=== PATIENT | female | born 1970 | race Caucasian/White ===

== ENCOUNTER → 2018-07-31 12:46 | Outpatient (CLI) | payer OTHER, SELFPAY ==
--- NOTE | 2018-07-31 | DI.MG.S_ITS ---
BILATERAL DIGITAL SCREENING MAMMOGRAM 3D/2D WITH CAD: 07/31/2018 CLINICAL: Routine screening. Comparison is made to exams dated: 04/28/2016 mammogram and 12/24/2013 mammogram - [facility]. The tissue of both breasts is heterogeneously dense. This may lower the sensitivity of mammography. Current study was also evaluated with a Computer Aided Detection (CAD) system. No significant masses, calcifications, or other findings are seen in either breast. There has been no significant interval change. IMPRESSION: NEGATIVE There is no mammographic evidence of malignancy. A 1 year screening mammogram is recommended. This exam was interpreted at Station ID: [id number]. NOTE: For mammograms, a report in lay terms will be sent to the patient. Approximately 15% of breast malignancies will not be visualized mammographically. In the management of a palpable breast mass, a negative mammogram must not discourage biopsy of a clinically suspicious lesion. Electronically Signed By: Rajinder kan/heriberto:08/03/2018 06:55:58 letter sent: Normal Exam ACR BI-RADS Category 1: Negative 3341F
== END ==
PROVIDERS: Family Provider Family Medicine; PCP Family Medicine; Visit Provider Family Medicine
DX: Z12.31 Encounter for screening mammogram for malignant neoplasm of breast (principal)
CPT/HCPCS: 77063; 77067

== ENCOUNTER → 2019-11-20 15:10 | Outpatient (CLI) | payer BC, SELFPAY ==
--- NOTE | 2019-11-20 | DI.MG.S_ITS ---
BILATERAL DIGITAL SCREENING MAMMOGRAM 3D/2D WITH CAD: 11/20/2019 CLINICAL: Routine screening. Comparison is made to exams dated: 07/31/2018 mammogram, 04/28/2016 mammogram, and 12/24/2013 mammogram - [facility]. The tissue of both breasts is heterogeneously dense. This may lower the sensitivity of mammography. Current study was also evaluated with a Computer Aided Detection (CAD) system. There are benign lymph nodes in the right breast. No significant masses, calcifications, or other findings are seen in either breast. There has been no significant interval change. IMPRESSION: There is no mammographic evidence of malignancy. A 1 year screening mammogram is recommended. This exam was interpreted at Station ID: [id number]. NOTE: For mammograms, a report in lay terms will be sent to the patient. Approximately 15% of breast malignancies will not be visualized mammographically. In the management of a palpable breast mass, a negative mammogram must not discourage biopsy of a clinically suspicious lesion. Electronically Signed By: Dennis lin/heriberto:11/20/2019 19:00:58 letter sent: Normal Exam ACR BI-RADS Category 2: Benign Finding(s) 3342F
== END ==
PROVIDERS: PCP Family Medicine; Visit Provider Family Medicine
DX: Z12.31 Encounter for screening mammogram for malignant neoplasm of breast (principal)
CPT/HCPCS: 77063; 77067

== ENCOUNTER → 2020-11-09 11:08 | Outpatient (CLI) | payer BC, SELFPAY ==
[2020-11-09 12:26] LABS: COVID19 -Nasal RAPID Negative (Negative)
== END ==
PROVIDERS: PCP Family Medicine; Visit Provider Physician Assistant
DX: Z20.828 Contact with and (suspected) exposure to other viral communicable diseases (principal); J02.9 Acute pharyngitis, unspecified
CPT/HCPCS: 87070; 87635

== ENCOUNTER 2021-04-17 09:26 | Emergency (ER) | payer BC, SELFPAY ==
[2021-04-17 09:37] VITALS: BP 147/94; PULSE 72; RESP 16; TEMP 36.8; O2SAT 97; BMI 26.6
--- NOTE | 2021-04-17 09:57 | ED.GENADULT ---
HPI - General Adult General Chief complaint: Extremity Injury, Upper Stated complaint: swelling under left arm Time Seen by Provider: 04/17/21 09:37 Source: patient Mode of arrival: Ambulatory Limitations: no limitations History of Present Illness HPI narrative: Patient is a 50-year-old female who while shaving this morning noticed some swelling under her left arm. She states that was also a slight bit tender. There is no redness over the area. She did recently receive vaccine in her left arm. She is not having any fevers. No breast tenderness. No nipple discharge. Related Data Home Medications Medication Instructions Recorded Confirmed [ control pill] #0 09/13/16 11/09/20 Previous Rx's Medication Instructions Recorded oxycodone-acetaminophen [Percocet] 1 - 2 tab PO Q6HP PRN #20 tab 02/17/17 Allergies Allergy/AdvReac Type Severity Reaction Status Date / Time No Known Drug Allergies Allergy Unverified 11/09/20 11:17 Review of Systems Constitutional Constitutional: Denies fever(s) Cardiovascular Cardiovascular: Denies chest pain and Denies dyspnea Respiratory Respiratory: Denies dyspnea Musculoskeletal Comments: No left arm pain Integumentary/Breasts Comments: Swelling under left arm without any redness Neurologic Neurologic: Reports system reviewed and no additional complaints, except as documented Hematologic/Lymphatic Hematologic/Lymphatic: Reports system reviewed and no additional complaints, except as documented Allergic/Immunologic Allergic/Immunologic: Reports system reviewed and no additional complaints, except as documented Patient History Medical History No active medical problems Social History Smoking Status: Never smoker Smoking Status: Never smoker Exam Initial Vital Signs Initial Vital Signs: Vital Signs Temperature 98.3 F 04/17/21 09:37 Pulse Rate 72 04/17/21 09:37 Respiratory Rate 16 04/17/21 09:37 Blood Pressure 147/94 H 04/17/21 09:37 Pulse Oximetry 97 04/17/21 09:37 Const General: cooperative and comfortable Limitations: mental status not altered HENMT Head: normal to inspection and normocephalic Chest Other: Left breast is unremarkable. There are no masses. No nipple discharge. Patient does have a 3 cm x 1 cm area of swelling that is very well-defined in the left axilla that is slightly tender on the inferior aspect of it. There is no skin changes over the area. Resp Effort & Inspection: normal respiratory effort Cardio Pulses: radial pulses present on the left Skin Lesions: no lesions Rashes: no rashes Neuro General: patient alert and patient awake Cognition: normal cognition Speech: speech normal Extrem Other: Left shoulder left elbow left wrist unremarkable. Psych Appearance: grossly normal and well kempt Course Vital Signs Vital signs: Vital Signs - 8 hr 04/17/ 09:37 Temperature 98.3 F Pulse Rate 72 Respiratory Rate 16 Blood Pressure 147/94 H Pulse Oximetry 97 Medical Decision Making MDM Narrative Medical decision making narrative: Her physical exam today he is consistent with lymphadenopathy. There is no skin changes over the area that would make me concerned about an abscess. Her left breast exam was unremarkable. This was performed with nursing staff at bedside. I did discuss the findings with the patient. Informed her that if her symptoms worsen over the next couple days specifically skin changes that she needs to return to the emergency department. I informed her that if this was lymphadenopathy is should improve within the next couple days and if it does not or if it slowly worsens that she needs to talk with her primary doctor about further evaluation. She expressed understanding and agreement. Discharge Plan Departure Patient Disposition: Home Clinical Impression: Lymphadenopathy Instructions: DI for Lymphadenopathy Activity Restrictions/Additional Instructions: I would keep an eye on the swelling under your left arm. This should improve over the next week. If symptoms worsen prior to that please return to the emergency department. If there is no change or there is a slow worsening of the swelling then please contact your primary doctor for further evaluation. Prescriptions: No Action [ control pill] Qty: 0 RF: 0 oxycodone-acetaminophen [Percocet] 5 MG/325 MG tablet 1 - 2 tab PO Q6HP PRNQty: 20 RF: 0 Referrals: Ana Hanson DO [Primary Care Provider] -
--- NOTE | 2021-04-17 10:05 | PC.NURSE ---
swelling under L arm assessed by MD without RN involvement.
== END 2021-04-17 10:06 | disposition home or self-care (01) ==
PROVIDERS: Emergency Provider Emergency Medicine; PCP Family Medicine
DX: R59.1 Generalized enlarged lymph nodes (principal)
CPT/HCPCS: 99281

== ENCOUNTER → 2021-08-03 15:12 | Outpatient (CLI) | payer BC, SELFPAY ==
--- NOTE | 2021-08-03 | DI.MG.S_ITS ---
BILATERAL DIGITAL SCREENING MAMMOGRAM 3D/2D WITH CAD: 08/03/2021 CLINICAL: Routine screening. Family history of breast cancer. Comparison is made to exams dated: 11/20/2019 mammogram, 07/31/2018 mammogram, and 04/28/2016 mammogram - [facility]. The tissue of both breasts is heterogeneously dense. This may lower the sensitivity of mammography. Current study was also evaluated with a Computer Aided Detection (CAD) system. There are benign lymph nodes in the right breast. No significant masses, calcifications, or other findings are seen in either breast. There has been no significant interval change. IMPRESSION: BENIGN There is no mammographic evidence of malignancy. A 1 year screening mammogram is recommended. This exam was interpreted at Station ID: [id number]. NOTE: For mammograms, a report in lay terms will be sent to the patient. Approximately 15% of breast malignancies will not be visualized mammographically. In the management of a palpable breast mass, a negative mammogram must not discourage biopsy of a clinically suspicious lesion. Electronically Signed By: Nicola [email or web address]/[email or web address]:08/04/2021 08:14:47 letter sent: Normal Exam ACR BI-RADS Category 2: Benign Finding(s) 3342F
== END ==
PROVIDERS: PCP Family Medicine; Referring Provider Family Medicine; Visit Provider Family Medicine
DX: Z12.31 Encounter for screening mammogram for malignant neoplasm of breast (principal); Z71.3 Dietary counseling and surveillance
CPT/HCPCS: 77063; 77067